=== PATIENT | male | born 1945 | race Caucasian/White ===

== ENCOUNTER → 2016-10-07 | Outpatient (CLI) | payer MEDICARE | LOC: PCVCCLINIC 09:40 | PROVIDERS: ATTEND Internal Medicine Cardiovascular Disease | DX: E78.00 Pure hypercholesterolemia, unspecified (principal); I10 Essential (primary) hypertension; I77.9 Disorder of arteries and arterioles, unspecified; I25.10 Atherosclerotic heart disease of native coronary artery without angina pectoris; I73.9 Peripheral vascular disease, unspecified; E11.9 Type 2 diabetes mellitus without complications | CPT/HCPCS: 80061; 93005; G0463 ==

== ENCOUNTER → 2016-11-18 | Outpatient (CLI) | payer MEDICARE | END | disposition home or self-care (01) | LOC: PCVCIMAG 13:54 | PROVIDERS: ATTEND Nuclear Medicine Nuclear Cardiology | DX: I70.213 Atherosclerosis of native arteries of extremities with intermittent claudication, bilateral legs (principal); I25.10 Atherosclerotic heart disease of native coronary artery without angina pectoris; I77.9 Disorder of arteries and arterioles, unspecified; E78.00 Pure hypercholesterolemia, unspecified; I12.9 Hypertensive chronic kidney disease with stage 1 through stage 4 chronic kidney disease, or unspecified chronic kidney disease; N18.9 Chronic kidney disease, unspecified; E11.9 Type 2 diabetes mellitus without complications; R91.1 Solitary pulmonary nodule | CPT/HCPCS: 93923; 93925; G0463; 93924 ==

== ENCOUNTER → 2017-01-22 | Outpatient (CLI) | payer MEDICARE | END | disposition home or self-care (01) | LOC: PCVCIMAG 09:19 | PROVIDERS: ATTEND Internal Medicine Cardiovascular Disease | DX: I25.10 Atherosclerotic heart disease of native coronary artery without angina pectoris (principal); I12.0 Hypertensive chronic kidney disease with stage 5 chronic kidney disease or end stage renal disease; N18.6 End stage renal disease; E78.00 Pure hypercholesterolemia, unspecified | CPT/HCPCS: 80061; 93005; 93308; G0463 ==

== ENCOUNTER → 2017-04-09 | Outpatient (CLI) | payer MEDICARE ==
--- NOTE | 2017-04-09 14:01 | PCVCIMAG ---
EXAM: NONINVASIVE ARTERIAL EXAMINATION OF BOTH LOWER EXTREMITIES INCLUDING PRE AND POST EXERCISE PRESSURE MEASUREMENTS AND DOPPLER WAVEFORMS INDICATION: Peripheral Arterial Disease. Leg pain. FINDINGS: Right Brachial: 136 mm Hg. Right Dorsalis Pedis: 199 mm Hg. Right Posterior Tibial: 228 mm Hg. Right ALEX = 1.68. Left Brachial: -- mm Hg. Left Dorsalis Pedis: 187 mm Hg. Left Posterior Tibial: 202 mm Hg. Left ALEX = 1.49. Post Exercise: Right Brachial 171 mm Hg. Right Posterior Tibial: 150 mm Hg. Left Posterior Tibial: 170 mm Hg. Right ALEX = 0.88. Left ALEX = 0.99. IMPRESSION: No resting ischemia in the right lower extremity. Minimal exercise induced ischemia in the right lower extremity. No resting ischemia in the left lower extremity. No exercise induced ischemia in the left lower extremity. Note is made of diffuse vascular calcification making some the vessels difficult to compress. LOC:[id number]
--- NOTE | 2017-04-09 14:03 | PCVCIMAG ---
EXAM: BILATERAL CAROTID DUPLEX INDICATION: Carotid Occlusive Disease. FINDINGS: Doppler Measurements (centimeters per second): RIGHT: Peak CCA-60, Peak ECA-225, Diastolic ICA-17, Peak ICA-86, ICA/CCA Ratio-1.4. LEFT: Peak CCA-64, Peak ECA-86, Diastolic ICA-11, Peak ICA-63, ICA/CCA Ratio-1.0. RIGHT CAROTID: The carotid bulb has moderate plaque. The proximal internal carotid artery shows <40% stenosis. The common carotid artery shows no significant stenosis. The external carotid artery shows 70% stenosis. LEFT CAROTID: The carotid bulb has moderate plaque. The proximal internal carotid artery shows <40% stenosis. The common carotid artery shows no significant stenosis. The external carotid artery shows no significant stenosis. Antegrade flow in both vertebral arteries. IMPRESSION: <40% stenosis of the right internal carotid artery with moderate plaque. <40% stenosis of the left internal carotid artery with moderate plaque. LOC:[place] [id number]
--- NOTE | 2017-04-09 15:42 | PCVCIMAG ---
EXAM: BILATERAL LOWER EXTREMITY ARTERIAL DUPLEX INDICATION: Peripheral Arterial Disease. Leg pain. FINDINGS: Right Leg: Satisfactory arterial waveforms in the common and profunda femoral artery and throughout the superficial femoral artery and popliteal artery. Previous stent in the distal superficial femoral artery and upper popliteal artery is maintaining good patency. There is unchanged 80% stenosis mid right anterior tibial artery. The right peroneal and posterior tibial arteries are patent. Left Leg: Satisfactory arterial waveforms in the common and profunda femoral artery and throughout the superficial femoral artery and popliteal artery. Previous stent in the distal superficial femoral artery is maintaining good patency. Popliteal artery is patent. The anterior tibial, peroneal, and posterior tibial arteries are patent. IMPRESSION: Previous right superficial femoral artery and popliteal artery stents are maintaining good patency. Previous left superficial femoral artery stent is maintaining good patency. Unchanged 80% stenosis mid right anterior tibial artery. LOC:[place] [id number]
== END | disposition home or self-care (01) ==
LOC: PCVCIMAG 12:57
PROVIDERS: ATTEND Internal Medicine Cardiovascular Disease
DX: I70.201 Unspecified atherosclerosis of native arteries of extremities, right leg (principal); I77.1 Stricture of artery; I99.8 Other disorder of circulatory system; I77.89 Other specified disorders of arteries and arterioles; E78.5 Hyperlipidemia, unspecified; I65.23 Occlusion and stenosis of bilateral carotid arteries; I25.10 Atherosclerotic heart disease of native coronary artery without angina pectoris; I12.0 Hypertensive chronic kidney disease with stage 5 chronic kidney disease or end stage renal disease; E11.22 Type 2 diabetes mellitus with diabetic chronic kidney disease; N18.5 Chronic kidney disease, stage 5; Z95.828 Presence of other vascular implants and grafts; J45.909 Unspecified asthma, uncomplicated; Z85.118 Personal history of other malignant neoplasm of bronchus and lung; Z87.891 Personal history of nicotine dependence; Z91.041 Radiographic dye allergy status; Z91.048 Other nonmedicinal substance allergy status; Z79.82 Long term (current) use of aspirin; Z79.4 Long term (current) use of insulin
CPT/HCPCS: 80061; 93005; 93880; 93923; 93925; G0463; 93924

== ENCOUNTER → 2017-07-30 | Outpatient (CLI) | payer MEDICARE ==
[~2017-07-30] MED LIST: REGADENOSON 0.4 MG/5 ML DISP.SYRIN. IV ONE
--- NOTE | 2017-07-30 13:25 | PCVCIMAG ---
APPROVED REPORT Exam: Nuclear Stress Test Indication: Pre-Operative CV evaluation, CAD Patient Location: Out-Patient Stress Nurse: Kenzie Gonzalez RN, CHELSEA Rivera Tech:Fiorella Zhang [facility] Ht: 5 ft 11 in Wt: 233 lbs BSA: 2.25 m2 HR: 63 bpm BP: 198/97 mmHg BMI: 32.4 Rhythm: NSR Medical History Medical History: HTN, Hyperlipidemia, COPD, Diabetic Insulin, Age, PVD, CVD, Former Smoker Medications: Albuterol, Eliquis, ASA, Atenolol, Atorvastatin, Klonopin Allergies: Iodine Pretest Chest Pain Characteristics: No chest pain Exercise History: Physically active Meds Held (24 hrs): Atenolol NM EXAM: Myocardial Perfusion REST/STRESS Imaging Protocol: Rest Tc-99m/Stress Tc-99m 1 day Resting Data Rest SPECT myocardial perfusion imaging was performed in supine position 45 minutes following the intravenous injection of 10.7 mCi of Tc-99m Sestamibi. Time of rest injection: Date: 07/30/2017 Administration Route: IV Administration Site: Right Wrist Pharmacologic Stress Pharmacologic stress test was performed by injecting Regadenoson 0.4 mg IV push followed by the intravenous injection of 33.9 mCi of Tc-99m Sestamibi. Time of stress injection: 939 Date: 07/30/2017 Administration Route: IV Administration Site: Right Wrist Gated Stress SPECT was performed 45 minutes after stress injection. The images were gated to evaluate regional wall motion and calculate left ventricular ejection fraction. Study Quality Study: Good Study Data Post stress, the left ventricular ejection was 50%.. SSS: 0 SRS: 0 SDS: 0 TID = 1.00. Perfusion No evidence of stress induced ischemia or prior myocardial infarction. Wall Motion Moderate left ventricular dilatation. Nuclear Conclusion No evidence of stress induced ischemia or prior myocardial infarction. Post stress, the left ventricular ejection was 50%.. No change since prior study dated December 2014. Interpreted by: Anthony Bass MD Electronically Approved: 07/30/2017 11:22:40 Stress Test Details Stress Test: Pharmacologic stress testing performed using 0.4 mg of regadenoson per 5 mL given IV over 10 seconds. Reason for pharmacologic stress test: physical limitation. HR Resting HR: 63 bpmMax Heart Rate (APMHR): 150 bpm Max HR Achieved: 72 bpmTarget HR (85% APMHR): 127 bpm % of APMHR: 48 Recovery HR: 70 bpm BP Resting BP: 198/97 mmHg Max BP: 195/80 mmHg ECG Resting ECG: Sinus Rhythm Stress ECG: Sinus Rhythm Recovery ECG: Sinus Rhythm Clinical Reason for Termination: Completed protocol Stress Symptoms: Chest pressure, Dyspnea Exercise duration: 0 min 55 sec Symptoms resolved with caffeine. Stress ECG Conclusion ECG: Non-ischemic Clinical: Non-ischemic <Conclusion> ECG: Non-ischemic Clinical: Non-ischemic
== END | disposition home or self-care (01) ==
LOC: PCVCIMAG 08:16
PROVIDERS: ATTEND Internal Medicine Cardiovascular Disease
DX: I25.10 Atherosclerotic heart disease of native coronary artery without angina pectoris (principal); I12.0 Hypertensive chronic kidney disease with stage 5 chronic kidney disease or end stage renal disease; N18.5 Chronic kidney disease, stage 5; J44.9 Chronic obstructive pulmonary disease, unspecified; E11.22 Type 2 diabetes mellitus with diabetic chronic kidney disease; I73.9 Peripheral vascular disease, unspecified; J90 Pleural effusion, not elsewhere classified; I77.9 Disorder of arteries and arterioles, unspecified; E78.00 Pure hypercholesterolemia, unspecified; K21.9 Gastro-esophageal reflux disease without esophagitis; Z87.891 Personal history of nicotine dependence; Z79.899 Other long term (current) drug therapy; Z79.82 Long term (current) use of aspirin
CPT/HCPCS: 78452; 93005; 93017; A9500; G0463; J2785

== ENCOUNTER → 2018-01-19 | Outpatient (CLI) | payer MEDICARE | END | disposition home or self-care (01) | LOC: PCVCIMAG 15:10 | DX: I73.9 Peripheral vascular disease, unspecified (principal); I25.10 Atherosclerotic heart disease of native coronary artery without angina pectoris; I77.9 Disorder of arteries and arterioles, unspecified; I12.0 Hypertensive chronic kidney disease with stage 5 chronic kidney disease or end stage renal disease; E11.22 Type 2 diabetes mellitus with diabetic chronic kidney disease; N18.5 Chronic kidney disease, stage 5; E78.00 Pure hypercholesterolemia, unspecified; J44.9 Chronic obstructive pulmonary disease, unspecified; I48.91 Unspecified atrial fibrillation; Z87.891 Personal history of nicotine dependence; Z79.899 Other long term (current) drug therapy; Z79.4 Long term (current) use of insulin; Z79.82 Long term (current) use of aspirin | CPT/HCPCS: 93925; G0463 ==

== ENCOUNTER → 2018-01-26 | Outpatient (CLI) | payer MEDICARE | END | disposition home or self-care (01) | LOC: PCVCCLINIC 11:12 | DX: I12.0 Hypertensive chronic kidney disease with stage 5 chronic kidney disease or end stage renal disease (principal); N18.5 Chronic kidney disease, stage 5; I25.10 Atherosclerotic heart disease of native coronary artery without angina pectoris; E11.22 Type 2 diabetes mellitus with diabetic chronic kidney disease; E78.00 Pure hypercholesterolemia, unspecified; I48.91 Unspecified atrial fibrillation; I73.9 Peripheral vascular disease, unspecified; R01.1 Cardiac murmur, unspecified; I77.9 Disorder of arteries and arterioles, unspecified; R94.31 Abnormal electrocardiogram [ECG] [EKG]; Z87.891 Personal history of nicotine dependence; Z79.899 Other long term (current) drug therapy; Z79.82 Long term (current) use of aspirin; Z88.8 Allergy status to other drugs, medicaments and biological substances | CPT/HCPCS: 80061; 93005; G0463 ==

== ENCOUNTER → 2018-10-26 | Outpatient (CLI) | payer MEDICARE ==
--- NOTE | 2018-10-26 14:19 | PCVCIMAG ---
EXAM: BILATERAL CAROTID DUPLEX INDICATION: Carotid Occlusive Disease. FINDINGS: Doppler Measurements (centimeters per second): RIGHT: Peak CCA-57, Peak ECA-206, Diastolic ICA-23, Peak ICA-110, ICA/CCA Ratio-1.9. LEFT: Peak CCA-76, Peak ECA-109, Diastolic ICA-21, Peak ICA-83, ICA/CCA Ratio-1.1. RIGHT CAROTID: The carotid bulb has moderate plaque. The proximal internal carotid artery shows <40% stenosis. The common carotid artery shows no significant stenosis. The external carotid artery shows 60% stenosis. LEFT CAROTID: The carotid bulb has moderate plaque. The proximal internal carotid artery shows <40% stenosis. The common carotid artery shows no significant stenosis. The external carotid artery shows no significant stenosis. Antegrade flow in both vertebral arteries. IMPRESSION: <40% stenosis of the right internal carotid artery with moderate plaque. <40% stenosis of the left internal carotid artery with moderate plaque. No change since March 2017. LOC:[id number]
--- NOTE | 2018-10-26 15:46 | PCVCIMAG ---
EXAM: BILATERAL LOWER EXTREMITY ARTERIAL DUPLEX INDICATION: Peripheral Arterial Disease. Leg pain. FINDINGS: Right Leg: Satisfactory arterial waveforms throughout the common/profunda/superficial femoral, popliteal, anterior tibial, peroneal, and posterior tibial arteries. No flow limiting stenosis seen. Previous distal superficial femoral artery/proximal popliteal artery stent maintaining satisfactory patency. Left Leg: Satisfactory arterial waveforms throughout the common/profunda/superficial femoral, popliteal, anterior tibial, peroneal, and posterior tibial arteries. No flow limiting stenosis seen. Previous distal superficial femoral artery stent maintaining satisfactory patency. IMPRESSION: No flow limiting stenosis in the right lower extremity. No flow limiting stenosis in the left lower extremity. Previous bilateral superficial femoral artery stents maintaining satisfactory patency. LOC:[id number]
--- NOTE | 2018-11-01 20:38 | PCVCIMAG ---
APPROVED REPORT Study performed: 10/26/2018 12:53:30 EXAM: Comprehensive 2D, Doppler, and color-flow Echocardiogram Patient Location: Echo lab Status: routine BSA: 2.26 HR: 59 bpmBP: 122/68 mmHg Rhythm: NSR Other Information Study Quality: Adequate Risk Factors: Cardiac Risk Factors: HTN, Hyperlipidemia Indications Diabetes Atrial Fibrillation Hypertension/HDD Lung Cancer, Renal Disease, PAD 2D Dimensions IVSd: 14.46 (7-11mm)LVOT Diam: 21.33 (18-24mm) LVDd: 55.67 mm PWd: 11.03 (7-11mm)Ascending Ao: 33.11 (22-36mm) LVDs: 46.98 (25-40mm) Left Atrium: 47.87 (27-40mm) Aortic Root: 31.01 mm LV Single Plane 4CH: 53.96 % LV Single Plane 2CH: 47.03 % Biplane EF: 50.8 % Volumes Left Atrial Volume (Systole) Single Plane 4CH: 91.60 mLSingle Plane 2CH: 62.21 mL LA ESV Index: 37.00 mL/m2 Aortic Valve AoV Peak Sebastian.: 2.96 m/s AO Peak Gr.: 31.98 mmHgLVOT Max P.01 mmHg AO Mean Gr.: 17.45 mmHgLVOT Mean P.83 mmHg AO V2 Mean: 1.92 m/sLVOT Max V: 1.23 m/s AO V2 VTI: 69.06 cm ELVIRA (VTI): 1.53 [id number] V1 VTI: 29.62 cm ELVIRA Vmax: 1.48 cm2 Mitral Valve E/A Ratio: 1.0 MV Decel. Time: 205.22 ms MV E Max Sebastian.: 1.24 m/s MV A Sebastian.: 1.19 m/s MV PHT: 59.51 ms IVRT: 96.89 ms TDI E/Lateral E': 20.67E/Medial E': 12.40 Medial E' Sebastian.: 0.10 m/s Lateral E' Sebastian.: 0.06 m/s Pulmonary Vein P Vein S: 0.78 m/sP Vein A: 0.26 m/s P Vein D: 0.69 m/sP Vein A Dur.: 79.6 msec P Vein S/D Ratio: 1.13 Tricuspid Valve TR Peak Sebastian.: 3.16 m/s TR Peak Gr.: 39.82 mmHg Left Ventricle The left ventricle is normal size. There is normal LV segmental wall motion. Borderline concentric left ventricular hypertrophy. Left ventricular systolic function is normal. The left ventricular ejection fraction is within the normal range. LVEF is 55-60%. The left ventricular diastolic function is normal. Right Ventricle The right ventricle is normal size. The right ventricular systolic function is normal. Atria Left atrium is at the upper limits of normal. The right atrium size is normal. Aortic Valve The aortic valve is normal in structure. No aortic regurgitation is present. There is no aortic valvular stenosis. Mitral Valve The mitral valve is normal in structure. Mild mitral regurgitation. No evidence of mitral valve stenosis. Tricuspid Valve The tricuspid valve is normal in structure. Trace tricuspid regurgitation. Pulmonary artery pressure is 47mmHg. Pulmonic Valve The pulmonary valve is normal in structure. There is no pulmonic valvular regurgitation. Great Vessels The aortic root is normal in size. IVC is normal in size and collapses >50% with inspiration. Pericardium There is no pericardial effusion. <Conclusion> The left ventricle is normal size. Borderline concentric left ventricular hypertrophy. LVEF is 55-60%. The right ventricle is normal size. Left atrium is at the upper limits of normal. The aortic valve is normal in structure. Mild mitral regurgitation. Trace tricuspid regurgitation. Pulmonary artery pressure is 47mmHg. The aortic root is normal in size. There is no pericardial effusion.
== END | disposition home or self-care (01) ==
LOC: PCVCIMAG 12:39
PROVIDERS: ATTEND Nuclear Medicine Nuclear Cardiology
DX: I65.23 Occlusion and stenosis of bilateral carotid arteries (principal); I73.9 Peripheral vascular disease, unspecified; I77.9 Disorder of arteries and arterioles, unspecified
CPT/HCPCS: 93306; 93880; 93925

== ENCOUNTER → 2018-11-02 | Outpatient (CLI) | payer MEDICARE | END | disposition home or self-care (01) | LOC: PCVCCLINIC 09:52 | PROVIDERS: ATTEND Internal Medicine Cardiovascular Disease | DX: I25.10 Atherosclerotic heart disease of native coronary artery without angina pectoris (principal); I48.91 Unspecified atrial fibrillation; I77.9 Disorder of arteries and arterioles, unspecified; J44.9 Chronic obstructive pulmonary disease, unspecified; I10 Essential (primary) hypertension; E78.00 Pure hypercholesterolemia, unspecified; I73.9 Peripheral vascular disease, unspecified; E11.9 Type 2 diabetes mellitus without complications; Z87.891 Personal history of nicotine dependence | CPT/HCPCS: 36415; 80061; 93005; G0463 ==

== ENCOUNTER → 2019-07-28 | Outpatient (CLI) | payer MEDICARE ==
--- NOTE | 2019-07-28 09:31 | PCVCIMAG ---
EXAM: BILATERAL LOWER EXTREMITY ARTERIAL DUPLEX INDICATION: Peripheral Arterial Disease. Leg pain. FINDINGS: Right Leg: Common femoral and profunda femoral arteries are patent. Superficial femoral and popliteal artery are patent. Previous stent distal superficial femoral artery and upper popliteal artery is patent. The anterior tibial, peroneal, and posterior tibial arteries are patent. Left Leg: Common femoral profunda femoral arteries are patent. Superficial femoral artery and popliteal artery are patent. Previous stent mid/distal superficial femoral artery is patent. The anterior tibial, peroneal, and posterior tibial arteries are patent. IMPRESSION: No flow limiting stenosis in the right lower extremity. Previous distal right superficial femoral artery and popliteal artery stent maintaining adequate patency. No flow limiting stenosis in the left lower extremity. Previous mid/distal left superficial femoral artery stent maintaining good patency. LOC:[id number]
--- NOTE | 2019-07-29 17:53 | PCVCIMAG ---
APPROVED REPORT Imaging Protocol: Rest Tc-99m/Stress Tc-99m 1 day Study performed: 07/28/2019 09:23:43 Indication: Atrial Fibrillation, Chest pain, CKD, CAD Patient Location: Out-Patient Stress Nurse: Zoila Noriega RN, Kenzie Gonzalez RN OR Tech:CAMILO AyersMT Ht: 5 ft 11 in Wt: 242 lbs BSA: 2.29 m2 HR: 56 bpm BP: 156/67 mmHg BMI: 33.7 Rhythm: Sinus Bradycardia, nonspecific T wave abnormalities Medical History Medical History: HTN, Hyperlipidemia, PVD, Diabetic Insulin, CAD, Former Smoker, Atrial Fibrillation, COPD Medications: Aspirin, Atenolol, Amlodipine, Eliquis, Atorvastatin, Zetia, Lasix Allergies: Iodine, Morphine, Tape Cardiac Risk Factors: Age Pretest Chest Pain Characteristics: No chest pain Exercise History: Indeterminate Meds Held (24 hrs): Atenolol Resting Data Rest SPECT myocardial perfusion imaging was performed in supine position 45 minutes following the intravenous injection of 9.7 mCi of Tc-99m Sestamibi. Time of rest injection: 0900 Date: 07/28/2019 Administration Route: IV Administration Site: Right Arm Pharmacologic Stress Pharmacologic stress test was performed by injecting Regadenoson 0.4 mg IV push over 10-15 seconds immediately followed by the intravenous injection of 35.1 mCi of Tc-99m Sestamibi. Time of stress injection: 1045 Date: 07/28/2019 Administration Route: IV Administration Site: Right Arm Gated Stress SPECT was performed 45 minutes after stress injection. The images were gated to evaluate regional wall motion and calculate left ventricular ejection fraction. Stress Test Details Stress Test: Pharmacologic stress testing performed using 0.4 mg of regadenoson per 5 mL given IV over 10 seconds. Reason for pharmacologic stress test: physical limitation, COPD. HRMax Heart Rate (APMHR): 149 bpm Resting HR: 56 bpmTarget HR (85% APMHR): 126 bpm Max HR Achieved: 68 bpm % of APMHR: 45 Recovery HR: 68 bpm BP Resting BP: 156/67 mmHg Max BP: 123/56 mmHg Recovery BP: 148/57 mmHg ECG Resting ECG: Sinus Bradycardia, nonspecific T wave abnormalities Stress ECG: Sinus Rhythm, nonspecific T wave abnormalities Arrhythmia: PVC's Recovery ECG: Sinus Rhythm, nonspecific T wave abnormalities Clinical Reason for Termination: Completed protocol Stress Symptoms: Dyspnea Symptoms resolved with caffeine. Stress ECG Conclusion ECG: Non-ischemic Study Quality Study: Good Study Data Post stress, the left ventricular ejection was 47%.. SSS: 6 SRS: 3 SDS: 3 TID = 1.09. Perfusion No evidence of stress induced ischemia. There is a small area of mildly reduced uptake in the entire segment of the anteroseptal wall which is seen on the stress images as well as the resting images. Wall Motion No regional wall motion abnormalities. Nuclear Conclusion No evidence of stress induced ischemia. Post stress, the left ventricular ejection was 47%. No change since prior study dated July 2017. Interpreted by: Anthony Bass MD Electronically Approved: 07/28/2019 12:47:52 <Conclusion> ECG: Non-ischemic
== END ==
LOC: PCVCIMAG 07:40
PROVIDERS: ATTEND Internal Medicine Cardiovascular Disease
DX: I25.10 Atherosclerotic heart disease of native coronary artery without angina pectoris (principal); I48.91 Unspecified atrial fibrillation; E11.9 Type 2 diabetes mellitus without complications; I73.9 Peripheral vascular disease, unspecified; E78.00 Pure hypercholesterolemia, unspecified; N18.5 Chronic kidney disease, stage 5; J44.9 Chronic obstructive pulmonary disease, unspecified; Z87.891 Personal history of nicotine dependence
CPT/HCPCS: 78452; 80061; 93017; 93925; A9500; G0463; J2785